=== PATIENT | female | born 1995 | race Caucasian/White ===

== ENCOUNTER → 2017-07-22 | Outpatient (CLI) | payer BC ==
[~2017-07-22] MED LIST: CALC0.5C PO; LEVO75TA PO; OYST1TAB PO
--- NOTE | 2017-07-22 09:24 | DIAGNOSTIC IMAGING REPORT ---
PET/CT CLINICAL HISTORY: Thyroid cancer. COMPARISON STUDY: PET/CT dated 04/30/2015. Thyroid ultrasound dated 03/22/2014. TECHNIQUE: One hour following the IV administration of 13.75 mCi of F-18 FDG, PET/CT examination was performed from the vertex through the bony pelvis. Noncontrast CT is performed for the purposes of anatomic correlation and attenuation correction. Note that this does not reflect a diagnostic CT examination. Images were reviewed on a separate [employer] independent workstation. Fused images were obtained. Standard uptake values reported are maximum values within the region of interest expressed in gm/mL. FINDINGS: PET FINDINGS: Head and neck: There is expected physiologic activity within the brain parenchyma and the salivary glands. Low level pharyngeal activity is likely physiologic. There is a mildly FDG avid right cervical chain node seen on image #59 of the head and neck series. This measures 1.1 x 1.0 cm and demonstrates a maximum SUV of 3.2. No additional FDG avid cervical nodes are identified. Mild FDG activity is seen at the left operative bed on image #82. This demonstrates a maximum SUV of 2.5. No discrete soft tissue lesion is seen on the low-dose CT images. Thorax: Evaluation of the thorax demonstrates expected physiologic myocardial activity. Abdomen and pelvis: There is expected activity within the liver, spleen, kidneys, renal collecting system, and bladder. Low-level bowel activity is likely within physical limits. Unenhanced CT images: The brain parenchyma is normal as visualized. The bony orbits are intact. Orbital contents are within normal limits. The paranasal sinuses and the mastoid air cells are clear. The salivary glands are normal in appearance. The thyroid gland is surgically absent. Surgical clips are noted in the left neck. The thoracic aorta is normal in caliber. The heart is normal in size and without pericardial effusion. The lungs and pleural spaces are clear. There is no mediastinal, hilar, or axillary lymphadenopathy. The unenhanced liver, gallbladder, spleen, pancreas, adrenal glands, and kidneys are grossly unremarkable. The abdominal aorta is normal in caliber. No bowel obstruction is identified. A normal appendix is noted. There is no intraperitoneal free air or abdominal ascites. A small fat-containing umbilical hernia is identified. There is no abdominal, pelvic, or inguinal lymphadenopathy. A 4.5 cm left ovarian dermoid is unchanged. The bladder is decompressed and grossly unremarkable. The uterus is normal as visualized. No lytic or blastic bony lesion is seen. IMPRESSION: 1. There is an indeterminant right cervical lymph node which measures 1.1 cm and demonstrates low level FDG activity. Metastatic disease is not excluded. 2. There is nonspecific low-level activity in the left thyroid bed. No corresponding soft tissue lesion is identified on the low dose CT images. Ultrasound follow-up is recommended for both findings. 3. No additional FDG avid lesions are identified. 4. The lungs are clear. Electronically signed by: Phillip De Los Santos M.D. 07/22/2017 9:23 AM Dictated Date/Time: 07/22/2017 9:07 AM
== END | disposition home or self-care (01) ==
LOC: C.PET 06:45
PROVIDERS: ATTEND Radiology Radiation Oncology
DX: C73 Malignant neoplasm of thyroid gland (principal)